=== PATIENT | female | born 1980 | race Two or more races ===

== ENCOUNTER → 2016-11-05 | Outpatient (CLI) | payer MEDICARE, MEDICAID | LOC: RAD 08:30 | PROVIDERS: ATTEND Specialist | DX: C50.412 Malignant neoplasm of upper-outer quadrant of left female breast (principal) | CPT/HCPCS: 78306; A9503; Q9969 ==

== ENCOUNTER → 2016-11-12 | Outpatient (CLI) | payer MEDICARE, MEDICAID | LOC: RAD 10:10 | PROVIDERS: ATTEND Specialist | DX: C50.412 Malignant neoplasm of upper-outer quadrant of left female breast (principal); C17.2 Malignant neoplasm of ileum | CPT/HCPCS: 72197; A9576 ==

== ENCOUNTER → 2016-11-15 | Outpatient (CLI) | payer MEDICARE, MEDICAID | LOC: RAD 08:49 | PROVIDERS: ATTEND Specialist | DX: C50.412 Malignant neoplasm of upper-outer quadrant of left female breast (principal) | CPT/HCPCS: 71260; 74177 ==

== ENCOUNTER → 2016-12-02 | Outpatient (CLI) | payer MEDICARE, MEDICAID ==
[2016-12-02 17:19] LABS: ABSOLUTE EOSINOPHILS # (AUTO) 0.1 10^3/uL (0.0-0.6); ABSOLUTE LYMPHOCYTES (AUTO) 1.3 10^3/uL (0.5-4.7); ABSOLUTE MONOCYTES (AUTO) 0.4 10^3/uL (0.1-1.4); ABSOLUTE NEUT (AUTO) 6.4 10^3/uL (1.7-8.2); BASOPHILS % (AUTO) 0.3 % (0-2); EOSINOPHILS % (AUTO) 1.1 % (0-6); HEMATOCRIT 40.2 % (36.0-47.0); HEMOGLOBIN 13.8 g/dL (12.0-15.5); HGB HCT DIFFERENCE 1.2; LYMPHOCYTES % (AUTO) 15.9 % (13-45); MEAN CORPUSCULAR HEMOGLOBIN 31.8 pg (27.0-33.4); MEAN CORPUSCULAR HGB CONC 34.3 g/dL (32.0-36.0); MEAN CORPUSCULAR VOLUME 93 fl (80-97); MONOCYTES % (AUTO) 4.4 % (3-13); RED BLOOD COUNT 4.34 10^6/uL (3.72-5.28); RED CELL DISTRIBUTION WIDTH 12.6 % (11.5-14.0); SEGMENTED NEUTROPHILS % (AUTO) 78.3 % (42-78); WHITE BLOOD COUNT 8.2 10^3/uL (4.0-10.5)
== END ==
LOC: OD 15:57
PROVIDERS: ATTEND Radiology Radiation Oncology
DX: C50.412 Malignant neoplasm of upper-outer quadrant of left female breast (principal); C79.51 Secondary malignant neoplasm of bone
CPT/HCPCS: 36415; 85025

== ENCOUNTER → 2017-03-10 | Outpatient (CLI) | payer MEDICARE, MEDICAID ==
--- NOTE | 2017-03-10 10:14 | RADIOLOGY REPORT (SQ) ---
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 Images reviewed with lung, soft tissue and bone windows. Reconstructed coronal and sagittal MPR images reviewed. All images stored on PACS. All CT scanners at this facility use dose modulation, iterative reconstruction, and/or weight based d osing when appropriate to reduce radiation dose to as low as reasonably achievable (ALARA). [facility]: Dose Right [facility]: CareDose [facility]: Dose Right [facility]: Teradose 4D [facility]: [employer] CONTRAST TYPE AND DOSE: 100 mL Isovue 370 RENAL FUNCTION: None required. The patient is less than 50 years old. RADIATION DOSE: Up-to-date CT equipment and radiation dose reduction techniques were employed. CTDIv ol: 4.5 - 13.4 mGy. DLP: 1210 mGy-cm. . LIMITATIONS: None. FINDINGS: LUNGS AND PLEURA: There is a stable 3.7 mm nodule in the left lower lobe. Lung robbins are otherwise clear. No effusions or consolidation. HILAR AND MEDIASTINAL STRUCTURES: No identified masses or abnormal nodes. HEART AND VASCULAR STRUCTURES: No aneurysm or dissection. No central pulmonary emboli. No pericardi al effusion. HARDWARE: None in the chest. UPPER ABDOMEN: No significant findings. Limited exam. THYROID AND OTHER SOFT TISSUES: No masses or adenopathy. Breast implants are in place. BONES: No significant finding. OTHER: No other significant finding. IMPRESSION: Single stable 3.7 mm nodule in the left lower lobe. No other significant findings. TECHNICAL DOCUMENTATION: JOB ID: [id number] Quality ID # 436: Final reports with documentation of one or more dose reduction techniques (e.g., Au tomated exposure control, adjustment of the mA and/or kV according to patient size, use of iterative reconstruction technique) 2010 [email or web address]- All Rights Reserved
--- NOTE | 2017-03-10 11:07 | RADIOLOGY REPORT (SQ) ---
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 TECHNIQUE: CT scan of the abdomen and pelvis performed using helical scanning technique with dynamic intravenous contrast injection. No oral contrast. Images reviewed with lung, soft tissue, and bone windows. Reconstructed coronal and sagittal MPR images reviewed. Delayed images for evaluation of the urinary system also acquired. All images stored on PACS. All CT scanners at this facility use dose modulation, iterative reconstruction, and/or weight based d osing when appropriate to reduce radiation dose to as low as reasonably achievable (ALARA). [facility]: Dose Right [facility]: CareDose [facility]: Dose Right [facility]: Teradose 4D [facility]: [email or web address] CONTRAST TYPE AND DOSE: contrast/concentration: Isovue 370.00 mg/ml; Total Contrast Delivered: 84.0 ml; Total Saline Delivered: 69.0 ml RENAL FUNCTION: None required. The patient is less than 50 years old. RADIATION DOSE: . LIMITATIONS: None. FINDINGS: LOWER CHEST: No significant findings. No nodules or infiltrates. LIVER: Normal size. No masses or dilated ducts. SPLEEN: Normal size. No focal lesions. PANCREAS: No masses. No significant calcifications. No adjacent inflammation or peripancreatic fluid collections. Pancreatic duct not dilated. GALLBLADDER: No identified stones by CT criteria. No inflammatory changes to suggest cholecystitis. ADRENAL GLANDS: No significant masses or asymmetry. RIGHT KIDNEY AND URETER: No solid masses. No significant calcifications. No hydronephrosis or hyd roureter. LEFT KIDNEY AND URETER: No solid masses. No significant calcifications. No hydronephrosis or hydr oureter. AORTA AND VESSELS: No aneurysm. No dissection. Renal arteries, SMA, celiac without stenosis. RETROPERITONEUM: No retroperitoneal adenopathy, hemorrhage or masses. BOWEL AND PERITONEAL CAVITY: No masses or inflammatory changes. No free fluid or peritoneal masses. APPENDIX: Normal. PELVIS: No mass or free fluid. Normal bladder. ABDOMINAL WALL: No masses. No hernias. BONES: There are stable bilateral iliac wing lesions. OTHER: No other significant finding. IMPRESSION: Stable bilateral iliac wing lesions. No soft tissue abnormalities in the abdomen or pel vis. TECHNICAL DOCUMENTATION: JOB ID: [id number] Quality ID # 436: Final reports with documentation of one or more dose reduction techniques (e.g., Au tomated exposure control, adjustment of the mA and/or kV according to patient size, use of iterative reconstruction technique) 2010 [employer]- All Rights Reserved
== END ==
LOC: RAD 08:48
PROVIDERS: ATTEND Specialist
DX: C50.412 Malignant neoplasm of upper-outer quadrant of left female breast (principal)
CPT/HCPCS: 71260; 74177

== ENCOUNTER → 2017-03-17 | Outpatient (CLI) | payer MEDICARE, MEDICAID ==
--- NOTE | 2017-03-17 14:42 | RADIOLOGY REPORT (SQ) ---
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 RADIONUCLIDE AND DOSE: 20 millicuries Tc99m MDP. The route of agent administration: Intravenous. ADDITIONAL DRUGS AND DOSES: None. TECHNIQUE: Routine delayed images at 3 hours post radionuclide injection acquired of the bony skelet on including anterior and posterior whole-body projections and additional focused images as needed. LIMITATIONS: None. FINDINGS: BONES: Normal visualization without areas of photopenia or increased bony uptake of radiop harmaceutical. KIDNEYS: Symmetric excretion without obstruction. OTHER: No other significant finding. IMPRESSION: NORMAL BONE SCAN. COMMENT: PQRS [id number]: Current bone scan is compared with any available plain radiographs, prior bone scans, and CT/MRI. TECHNICAL DOCUMENTATION: JOB ID: [id number] [employer]- All Rights Reserved
== END ==
LOC: RAD 08:57
PROVIDERS: ATTEND Specialist
DX: C50.412 Malignant neoplasm of upper-outer quadrant of left female breast (principal)
CPT/HCPCS: 78306; A9561; Q9969

== ENCOUNTER → 2017-06-09 | Outpatient (CLI) | payer MEDICARE, MEDICAID ==
--- NOTE | 2017-06-09 15:09 | RADIOLOGY REPORT (SQ) ---
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 Images reviewed with lung, soft tissue and bone windows. Reconstructed coronal and sagittal MPR images reviewed. All images stored on PACS. All CT scanners at this facility use dose modulation, iterative reconstruction, and/or weight based d osing when appropriate to reduce radiation dose to as low as reasonably achievable (ALARA). [facility]: Dose Right [facility]: CareDose [facility]: Dose Right [facility]: Teradose 4D [facility]: [employer] RENAL FUNCTION: GFR > 60. RADIATION DOSE: . LIMITATIONS: None. FINDINGS: LUNGS AND PLEURA: 3 mm pleural-based nodule left lower lobe is unchanged. No new nodules. No effusions. HILAR AND MEDIASTINAL STRUCTURES: No identified masses or abnormal nodes. HEART AND VASCULAR STRUCTURES: No aneurysm or dissection. No central pulmonary emboli. No pericardi al effusion. HARDWARE: None in the chest. UPPER ABDOMEN: See separate report of the CT of the abdomen. THYROID AND OTHER SOFT TISSUES: Breast implants. BONES: No significant finding. OTHER: No other significant finding. IMPRESSION: Stable left lower lobe pulmonary nodule. TECHNICAL DOCUMENTATION: JOB ID: [id number] Quality ID # 436: Final reports with documentation of one or more dose reduction techniques (e.g., Au tomated exposure control, adjustment of the mA and/or kV according to patient size, use of iterative reconstruction technique) 2010 [employer]- All Rights Reserved
--- NOTE | 2017-06-09 15:16 | RADIOLOGY REPORT (SQ) ---
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 No oral contrast. Images reviewed with lung, soft tissue, and bone windows. Reconstructed coronal and sagittal MPR images reviewed. Delayed images for evaluation of the urinary system also acquired. All images stored on PACS. All CT scanners at this facility use dose modulation, iterative reconstruction, and/or weight based d osing when appropriate to reduce radiation dose to as low as reasonably achievable (ALARA). [facility]: Dose Right [facility]: CareDose [facility]: Dose Right [facility]: Teradose 4D [facility]: [employer] CONTRAST TYPE AND DOSE: contrast/concentration: Isovue 370.00 mg/ml; Total Contrast Delivered: 83.0 ml; Total Saline Delivered: 68.0 ml RENAL FUNCTION: See separate report of the same date. RADIATION DOSE: Up-to-date CT equipment and radiation dose reduction techniques were employed. CTDIv ol: 4.5 - 5.2 mGy. DLP: 700 mGy-cm.. LIMITATIONS: None. FINDINGS: LOWER CHEST: See separate report of the CT of the chest. LIVER: Normal size. No masses. No dilated ducts. SPLEEN: Normal size. No focal lesions. PANCREAS: No masses. No significant calcifications. No adjacent inflammation or peripancreatic fluid collections. Pancreatic duct not dilated. GALLBLADDER: No identified stones by CT criteria. No inflammatory changes to suggest cholecystitis. ADRENAL GLANDS: No significant masses or asymmetry. RIGHT KIDNEY AND URETER: No solid masses. No significant calcifications. No hydronephrosis or hyd roureter. LEFT KIDNEY AND URETER: No solid masses. No significant calcifications. No hydronephrosis or hydr oureter. AORTA AND VESSELS: No aneurysm. No dissection. Renal arteries, SMA, celiac without stenosis. RETROPERITONEUM: No retroperitoneal adenopathy, hemorrhage or masses. BOWEL AND PERITONEAL CAVITY: No masses or inflammatory changes. No free fluid or peritoneal masses. APPENDIX: Normal. PELVIS: No mass. No free fluid. Normal bladder. ABDOMINAL WALL: No masses. No hernias. BONES: Mixed sclerotic lytic lesions in the iliac bones bilaterally are stable. OTHER: No other significant finding. IMPRESSION: Stable appearance. Stable iliac bone lesions. TECHNICAL DOCUMENTATION: JOB ID: [id number] Quality ID # 436: Final reports with documentation of one or more dose reduction techniques (e.g., Au tomated exposure control, adjustment of the mA and/or kV according to patient size, use of iterative reconstruction technique) 2010 [employer]- All Rights Reserved
== END ==
LOC: RAD 09:39
PROVIDERS: ATTEND Internal Medicine
DX: C50.412 Malignant neoplasm of upper-outer quadrant of left female breast (principal)
CPT/HCPCS: 71260; 74177

== ENCOUNTER 2018-03-09 00:12 | Emergency (ER) | payer OTHER, MEDICARE, MEDICAID ==
[2018-03-09 00:55] VITALS: BP 135/83
[2018-03-09] MEDS ORDERED: CYCLOBENZAPRINE HCL 10 MG TABLET PO ONE (01:39)
[2018-03-09] MEDS ORDERED: OXYCODONE-ACETAMINOPHEN 5-325 MG TABLET PO ONE (01:39)
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
== END 2018-03-09 01:51 | disposition home or self-care (01) ==
LOC: ER 00:12
DX: S00.81XA Abrasion of other part of head, initial encounter (principal); R51 Headache; M54.2 Cervicalgia; V43.62XA Car passenger injured in collision with other type car in traffic accident, initial encounter; Z88.8 Allergy status to other drugs, medicaments and biological substances; Z91.040 Latex allergy status
CPT/HCPCS: 99283

== ENCOUNTER → 2018-03-30 | Outpatient (CLI) | payer MEDICARE, MEDICAID ==
--- NOTE | 2018-03-30 17:11 | RADIOLOGY REPORT (SQ) ---
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 The route of agent administration: Intravenous. ADDITIONAL DRUGS AND DOSES: None. TECHNIQUE: Routine delayed images at 3 hours post radionuclide injection acquired of the bony skelet on including anterior and posterior whole-body projections and additional focused images as needed. LIMITATIONS: None. FINDINGS: BONES: Normal visualization without areas of photopenia or increased bony uptake of radiop harmaceutical. KIDNEYS: Symmetric excretion without obstruction. OTHER: No other significant finding. IMPRESSION: NORMAL BONE SCAN. COMMENT: Quality measure 147: Current bone scan is compared with any available plain radiographs, p rior bone scans, and CT/MRI. TECHNICAL DOCUMENTATION: JOB ID: [id number] [employer]- All Rights Reserved Reading location - IP/workstation name: [email or web address]
== END ==
LOC: RAD 10:52
PROVIDERS: ATTEND Internal Medicine Hematology & Oncology
DX: C50.412 Malignant neoplasm of upper-outer quadrant of left female breast (principal)
CPT/HCPCS: 78306; A9561; Q9969

== ENCOUNTER → 2018-09-24 | Outpatient (CLI) | payer MEDICARE, MEDICAID ==
--- NOTE | 2018-09-24 08:46 | RADIOLOGY REPORT (SQ) ---
EXAM DESCRIPTION: KNEE LEFT 4 VIEWS; KNEE RIGHT 4 VIEWS COMPLETED DATE/TIME: 09/24/2018 8:26 am REASON FOR STUDY: PAIN IN UNSPECIFIED KNEE M25.579 PAIN IN UNSPECIFIED ANKLE AND JOINTS OF UNSPECIF IED M25.569 PAIN IN UNSPECIFIED KNEE BILATERAL KNEE PAIN SINCE CHEMOTHERAPY COMPARISON: None. NUMBER OF VIEWS: Four views. TECHNIQUE: AP, lateral, and both oblique radiographic images acquired of the right and left knee. LIMITATIONS: None. FINDINGS: MINERALIZATION: Normal. BONES: No acute fracture or dislocation. No worrisome bone lesions. JOINT: No effusion. SOFT TISSUES: No soft tissue swelling. No radio-opaque foreign body. OTHER: No other significant finding. IMPRESSION: NEGATIVE STUDY OF THE RIGHT AND LEFT KNEE. NO RADIOGRAPHIC EVIDENCE OF ACUTE INJURY. NO HIGH-GRADE JOINT SPACE NARROWING OR BULKY BONY SPURRING. TECHNICAL DOCUMENTATION: JOB ID: [id number] [employer]- All Rights Reserved Reading location - IP/workstation name: [facility]
--- NOTE | 2018-09-24 08:46 | RADIOLOGY REPORT (SQ) ---
EXAM DESCRIPTION: KNEE LEFT 4 VIEWS; KNEE RIGHT 4 VIEWS COMPLETED DATE/TIME: 09/24/2018 8:26 am REASON FOR STUDY: PAIN IN UNSPECIFIED KNEE M25.579 PAIN IN UNSPECIFIED ANKLE AND JOINTS OF UNSPECIF IED M25.569 PAIN IN UNSPECIFIED KNEE BILATERAL KNEE PAIN SINCE CHEMOTHERAPY COMPARISON: None. NUMBER OF VIEWS: Four views. TECHNIQUE: AP, lateral, and both oblique radiographic images acquired of the right and left knee. LIMITATIONS: None. FINDINGS: MINERALIZATION: Normal. BONES: No acute fracture or dislocation. No worrisome bone lesions. JOINT: No effusion. SOFT TISSUES: No soft tissue swelling. No radio-opaque foreign body. OTHER: No other significant finding. IMPRESSION: NEGATIVE STUDY OF THE RIGHT AND LEFT KNEE. NO RADIOGRAPHIC EVIDENCE OF ACUTE INJURY. NO HIGH-GRADE JOINT SPACE NARROWING OR BULKY BONY SPURRING. TECHNICAL DOCUMENTATION: JOB ID: [id number] [employer]- All Rights Reserved Reading location - IP/workstation name: [facility]
--- NOTE | 2018-09-24 08:46 | RADIOLOGY REPORT (SQ) ---
EXAM DESCRIPTION: ANKLE BILATERAL 3 VIEWS MIN COMPLETED DATE/TIME: 09/24/2018 8:26 am REASON FOR STUDY: PAIN IN UNSPECIFIED ANKLE AND JOINTS OF UNSPECIFIED FOOT M25.579 PAIN IN UNSPECIF IED ANKLE AND JOINTS OF UNSPECIFIED M25.569 PAIN IN UNSPECIFIED KNEE COMPARISON: None. NUMBER OF VIEWS: Three views. TECHNIQUE: AP, lateral, and oblique without weight bearing radiographic images acquired of the right and left ankle. LIMITATIONS: None. FINDINGS: MINERALIZATION: Normal. BONES: No acute fracture or dislocation. No worrisome bone lesions. No significant osteophytes. JOINTS: No effusions. SOFT TISSUES: No soft tissue swelling. No foreign body. OTHER: No other significant finding. IMPRESSION: NEGATIVE STUDY OF THE RIGHT AND LEFT ANKLES. NO EXPLANATION FOR PAIN. TECHNICAL DOCUMENTATION: JOB ID: [id number] [employer]- All Rights Reserved Reading location - IP/workstation name: [email or web address]
== END ==
LOC: OD 07:57
PROVIDERS: ATTEND Physician Assistant
DX: M25.562 Pain in left knee (principal); M25.561 Pain in right knee; M25.579 Pain in unspecified ankle and joints of unspecified foot

== ENCOUNTER → 2019-10-06 | Outpatient (CLI) | payer MEDICARE, MEDICAID ==
--- NOTE | 2019-10-06 12:43 | RADIOLOGY REPORT (SQ) ---
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 The patient is less than 50 years old. TECHNIQUE: CT scan of the chest performed using helical scanning technique with dynamic intravenous contrast injection. Images reviewed with lung, soft tissue and bone windows. Reconstructed coronal a nd sagittal MPR images reviewed. All images stored on PACS. CT scan of the abdomen and pelvis performed with intravenous and without oral contrastusing helical s leticia technique with dynamic intravenous contrast injection. Images reviewed with lung, soft tissu e and bone windows. Reconstructed coronal and sagittal MPR images reviewed. Delayed images for eval uation of the urinary system also acquired and evaluated. All images stored on PACS. All CT scanners at this facility use dose modulation, iterative reconstruction, and/or weight based d osing when appropriate to reduce radiation dose to as low as reasonably achievable (ALARA). [facility]: Dose Right [facility]: CareDose [facility]: Dose Right [facility]: Teradose 4D [facility]: [employer] RADIATION DOSE: CT Rad equipment meets quality standard of care and radiation dose reduction techniq ues were employed. CTDIvol: 4.6 - 4.7 mGy. DLP: 654 mGy-cm. . LIMITATIONS: None. FINDINGS: CHEST: LUNGS AND PLEURA: No opacities, nodules, masses. No pneumothorax. No effusions. HILAR AND MEDIASTINAL STRUCTURES: No identified masses or abnormal nodes. HEART AND VASCULAR STRUCTURES: No aneurysm or dissection. No central pulmonary emboli. No pericardi al effusion. HARDWARE: None. THYROID AND OTHER SOFT TISSUES: No masses. No adenopathy. BONES: No significant finding. OTHER: Patient is post bilateral skin sparing mastectomies. ABDOMEN AND PELVIS: LIVER: Normal size. No masses. No dilated ducts. SPLEEN: Normal size. No focal lesions. PANCREAS: No masses. No significant calcifications. No adjacent inflammation or peripancreatic fluid collections. Pancreatic duct not dilated. GALLBLADDER: No identified stones by CT criteria. No inflammatory changes to suggest cholecystitis. ADRENAL GLANDS: No significant masses or asymmetry. RIGHT KIDNEY AND URETER: No solid masses. No significant calcification. No hydronephrosis or hydroure ter. LEFT KIDNEY AND URETER: No solid masses. No significant calcification. No hydronephrosis or hydrouret er. AORTA AND VESSELS: No aneurysm. No dissection. Renal arteries, SMA, celiac without stenosis. RETROPERITONEUM: No retroperitoneal adenopathy, hemorrhage or masses. BOWEL AND PERITONEAL CAVITY: No masses or inflammatory changes. No free fluid or peritoneal masses. APPENDIX: Normal. ABDOMINAL WALL: No masses. No hernias. PELVIS: No mass or free fluid. Normal bladder. BONES: Persistent sclerotic lesions in the posterior right and left innominate bones adjacent to the SI joints, unchanged. Persistent sclerotic lesion in the anterior left pelvis/superior pubic ramus OTHER: No other significant finding. IMPRESSION: Stable sclerotic bony lesions in the pelvis Post bilateral skin sparing mastectomies with breast implants. NORMAL CT OF THE ABDOMEN AND PELVIS WITH ORAL AND INTRAVENOUS CONTRAST. TECHNICAL DOCUMENTATION: JOB ID: [id number] Quality ID # 436: Final reports with documentation of one or more dose reduction techniques (e.g., Au tomated exposure control, adjustment of the mA and/or kV according to patient size, use of iterative reconstruction technique) 2010 [employer]- All Rights Reserved Reading location - IP/workstation name: [email or web address]
--- NOTE | 2019-10-06 14:47 | RADIOLOGY REPORT (SQ) ---
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 Bone scan 03/30/2018 RADIONUCLIDE AND DOSE: 20 millicuries Tc99m HDP. The route of agent administration: Intravenous. ADDITIONAL DRUGS AND DOSES: None. TECHNIQUE: Routine delayed images at 3 hours post radionuclide injection acquired of the bony skelet on including anterior and posterior whole-body projections and additional focused images as needed. LIMITATIONS: None. FINDINGS: BONES: There is intense focal uptake at the superior aspect of the right sacroiliac joint. Intense uptake in the right humeral head KIDNEYS: Symmetric excretion without obstruction. OTHER: No other significant finding. IMPRESSION: There are findings concerning for metastatic disease. COMMENT: Quality measure 147: Current bone scan is compared with any available plain radiographs, p rior bone scans, and CT/MRI. TECHNICAL DOCUMENTATION: JOB ID: [id number] [employer]- All Rights Reserved Reading location - IP/workstation name: [email or web address]
== END ==
LOC: RAD 08:05
PROVIDERS: ATTEND Nurse Practitioner Family
DX: C50.412 Malignant neoplasm of upper-outer quadrant of left female breast (principal)
CPT/HCPCS: 78306; 71260; 74177; A9561; Q9969

== ENCOUNTER → 2020-04-05 | Outpatient (CLI) | payer MEDICARE, MEDICAID ==
--- NOTE | 2020-04-05 10:58 | RADIOLOGY REPORT (SQ) ---
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 Images reviewed with lung, soft tissue and bone windows. Reconstructed coronal and sagittal MPR and MIP images reviewed. All images stored on PACS. All CT scanners at this facility use dose modulation, iterative reconstruction, and/or weight based d osing when appropriate to reduce radiation dose to as low as reasonably achievable (ALARA). [facility]: Dose Right [facility]: CareDose [facility]: Dose Right [facility]: Teradose 4D [facility]: BioTime CONTRAST TYPE AND DOSE: contrast/concentration: Isovue 350.00 mmol/ml; Total Contrast Delivered: 87. 0 ml; Total Saline Delivered: 69.0 ml RENAL FUNCTION: See abdomen RADIATION DOSE: CT Rad equipment meets quality standard of care and radiation dose reduction techniq ues were employed. CTDIvol: 4.9 - 6.0 mGy. DLP: 684 mGy-cm. . LIMITATIONS: None. FINDINGS: LUNGS AND PLEURA: No opacities, nodules, masses. No pneumothorax. No effusions. HILAR AND MEDIASTINAL STRUCTURES: No identified masses or abnormal nodes. HEART AND VASCULAR STRUCTURES: No aneurysm or dissection. No central pulmonary emboli. No pericardi al effusion. HARDWARE: Bilateral breast prostheses. UPPER ABDOMEN: See separate report of the CT of the abdomen. THYROID AND OTHER SOFT TISSUES: Unremarkable thyroid. Postsurgical changes from bilateral mastectomi es with bilateral breast prostheses. BONES: No acute bony abnormality. Sclerotic focus within the right humeral head measuring 20 mm, inc reased in conspicuity from prior exam. OTHER: No other significant finding. IMPRESSION: 1. Increased conspicuity of the proximal right humeral sclerotic lesion compatible with osseous metastatic disease. 2. No other evidence of new metastatic disease within the thorax. 3. See same day abdomen CT for findings below the diaphragm. TECHNICAL DOCUMENTATION: JOB ID: [id number] Quality ID # [id number]: Final reports with documentation of one or more dose reduction techniques (e.g., Au tomated exposure control, adjustment of the mA and/or kV according to patient size, use of iterative reconstruction technique) 2010 [employer]- All Rights Reserved Reading location - IP/workstation name: [email or web address]
--- NOTE | 2020-04-05 12:06 | RADIOLOGY REPORT (SQ) ---
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 No oral contrast. Images reviewed with lung, soft tissue, and bone windows. Reconstructed coronal and sagittal MPR images reviewed. Delayed images for evaluation of the urinary system also acquired. All images stored on PACS. All CT scanners at this facility use dose modulation, iterative reconstruction, and/or weight based d osing when appropriate to reduce radiation dose to as low as reasonably achievable (ALARA). [facility]: Dose Right [facility]: CareDose [facility]: Dose Right [facility]: Teradose 4D [facility]: Smart QD Vision CONTRAST TYPE AND DOSE: See chest RENAL FUNCTION: See chest RADIATION DOSE: . LIMITATIONS: None. FINDINGS: LOWER CHEST: See separate report of the CT of the chest. LIVER: There is a 15 mm hypodense lesion along the posterior right hepatic lobe (series 3, image 56), not previously visualized. Additional adjacent focus of transit hyperattenuation along the posterio r right hepatic lobe appears grossly stable and non visualized on delayed imaging (series 3, image 58 ). This is better evaluated on exam dated 06/09/2017 and likely represents a hemangioma. SPLEEN: Normal size. No focal lesions. PANCREAS: No masses. No significant calcifications. No adjacent inflammation or peripancreatic fluid collections. Pancreatic duct not dilated. GALLBLADDER: No identified stones by CT criteria. No inflammatory changes to suggest cholecystitis. ADRENAL GLANDS: No significant masses or asymmetry. RIGHT KIDNEY AND URETER: No solid masses. No significant calcifications. No hydronephrosis or hyd roureter. LEFT KIDNEY AND URETER: No solid masses. No significant calcifications. No hydronephrosis or hydr oureter. AORTA AND VESSELS: No aneurysm. No dissection. Renal arteries, SMA, celiac without stenosis. RETROPERITONEUM: No retroperitoneal adenopathy, hemorrhage or masses. BOWEL AND PERITONEAL CAVITY: No masses or inflammatory changes. No free fluid or peritoneal masses. APPENDIX: Normal. PELVIS: No mass. No free fluid. Normal bladder. ABDOMINAL WALL: No masses. No hernias. BONES: No acute bony abnormality. Stable or bilateral iliac sclerotic lesions. No new discrete lyt ic or blastic osseous lesions. OTHER: No other significant finding. IMPRESSION: 1. New 15 mm hypodense lesion along the posterior right hepatic lobe, moderately suspic ious for hepatic metastatic disease. Stable additional adjacent transient enhancing lesion, likely h emangioma. Multiphase contrast-enhanced MRI could be considered for more definitive characterization . 2. Stable sclerotic osseous lesions within the pelvis. No new bony disease. 3. See same-day chest CT for findings above the diaphragm. TECHNICAL DOCUMENTATION: JOB ID: [id number] Quality ID # [id number]: Final reports with documentation of one or more dose reduction techniques (e.g., Au tomated exposure control, adjustment of the mA and/or kV according to patient size, use of iterative reconstruction technique) 2010 [employer]- All Rights Reserved Reading location - IP/workstation name: [email or web address]
== END ==
LOC: RAD 08:42
PROVIDERS: ATTEND Nurse Practitioner Family
DX: C50.412 Malignant neoplasm of upper-outer quadrant of left female breast (principal)
CPT/HCPCS: 71260; 74177

== ENCOUNTER 2020-04-10 02:34 | Emergency (ER) | payer MEDICARE, MEDICAID ==
[2020-04-10 05:06] LABS: ABSOLUTE LYMPHOCYTES (AUTO) 0.7 10^3/uL (0.5-4.7); ABSOLUTE MONOCYTES (AUTO) 0.5 10^3/uL (0.1-1.4); ABSOLUTE NEUT (AUTO) 4.4 10^3/uL (1.7-8.2); BASOPHILS % (AUTO) 0.5 % (0-2); EOSINOPHILS % (AUTO) 0.2 % (0-6); HEMATOCRIT 35.5 % (36.0-47.0); HEMOGLOBIN 12.4 g/dL (12.0-15.5); LYMPHOCYTES % (AUTO) 11.8 % (13-45); MEAN CORPUSCULAR HEMOGLOBIN 35.9 pg (27.0-33.4); MEAN CORPUSCULAR VOLUME 103 fl (80-97); MONOCYTES % (AUTO) 8.6 % (3-13); PLATELET COUNT 287 10^3/uL (150-450); RED BLOOD COUNT 3.46 10^6/uL (3.72-5.28); RED CELL DISTRIBUTION WIDTH 13.8 % (11.5-14.0); SEGMENTED NEUTROPHILS % (AUTO) 78.9 % (42-78); TOTAL CELLS COUNTED % (AUTO) 100 %; WHITE BLOOD COUNT 5.5 10^3/uL (4.0-10.5)
[2020-04-10 05:27] LABS: ALBUMIN 4.2 g/dL (3.5-5.0); ALKALINE PHOSPHATASE 52 U/L (38-126); ANION GAP 7 (5-19); ASPARTATE AMINO TRANSFERASE 18 U/L (14-36); BILIRUBIN,TOTAL 0.7 mg/dL (0.2-1.3); BLOOD UREA NITROGEN 5 mg/dL (7-20); CALCIUM 8.7 mg/dL (8.4-10.2); CARBON DIOXIDE 26 mmol/L (22-30); CHLORIDE 102 mmol/L (98-107); GLUCOSE 97 mg/dL (75-110); POTASSIUM 3.8 mmol/L (3.6-5.0); TOTAL PROTEIN 7.4 g/dL (6.3-8.2)
[2020-04-10] MEDS ORDERED: CEFTRIAXONE INJ 1000 MG VIAL IM ONE (07:34)
--- NOTE | 2020-04-10 07:40 | ER Document Report ---
ED General - General Chief Complaint: Facial Swelling Stated Complaint: FACIAL SWELLING Time Seen by Provider: 04/10/20 06:17 Primary Care Provider: LILLIAN WATT FNP-C [Primary Care Provider] - Follow up as needed Notes: 39 yof who presents to the ER with a CC of right sided facial swelling. Patient reports right lower dental cavities present. Patient states she began to have right jaw swelling yesterday am which has worsened to this early am. Patient does present with moderate right sided jaw swelling upon visual assessment. Patient denies difficulty swallowing or breathing. Patient able to speak full sentences. Patient reports history of right lower wisdom tooth removal this past november, as well as, as bone spur. Patient reports she was informed that she had bone and nerve damage following wisdom tooth removal. Pt's dentist is Nicolas Segovia in [place]. Patient states she was placed on Amoxicillin by her dentist due to an infection on inside of right lower gums. Patient reports taking her last does of Amoxicillin x1 1/2 weeks ago. Patient noted to have temperature of 100.2 upon arrival. TRAVEL OUTSIDE OF THE [place] IN LAST 30 DAYS: No - Related Data Allergies/Adverse Reactions: haloperidol [From Haldol] Allergy (Severe, Verified 06/08/15 08:53) Swelling latex [Latex] Allergy (Mild, Verified 06/08/15 08:53) Generalized rash Past Medical History - Social History Smoking Status: Current Every Day Smoker Chew tobacco use (# tins/day): No Frequency of alcohol use: None Drug Abuse: None Family History: Reviewed & Not Pertinent Patient has homicidal ideation: No - Past Medical History Cardiac Medical History: Denies: Hx Coronary Artery Disease, Hx Heart Attack, Hx Hypertension Pulmonary Medical History: Denies: Hx Asthma, Hx Bronchitis, Hx COPD, Hx Pneumonia Neurological Medical History: Denies: Hx Cerebrovascular Accident, Hx Seizures Renal/ Medical History: Denies: Hx Peritoneal Dialysis Musculoskeletal Medical History: Denies Hx Arthritis Psychiatric Medical History: Reports: Hx Bipolar Disorder Past Surgical History: Reports: Hx Oral Surgery - root canal - Immunizations Hx Diphtheria, Pertussis, Tetanus Vaccination: No Review of Systems - Review of Systems Constitutional: Fever. denies: Chills EENT: Mouth pain, Mouth swelling, Dental problem Cardiovascular: denies: Chest pain Respiratory: denies: Short of breath Gastrointestinal: No symptoms reported Genitourinary: No symptoms reported Female Genitourinary: No symptoms reported Musculoskeletal: No symptoms reported Skin: No symptoms reported Hematologic/Lymphatic: No symptoms reported Neurological/Psychological: No symptoms reported Physical Exam - Vital signs Vitals: Temp Pulse Resp BP Pulse Ox 100.2 F 104 H 18 117/74 97 04/10/20 02:48 04/10/20 02:48 04/10/20 02:48 04/10/20 02:48 04/10/20 02:48 - Notes Notes: GENERAL_APPEARANCE: well_nourished, alert, cooperative VITALS: reviewed, see vital signs table. HEAD: no_swelling\tenderness on the head. EYES: PERRL, EOMI, conjunctiva_clear. NOSE: no_nasal_discharge. MOUTH: Overall poor dentition. The right lower jaw has some swelling. Teeth are tender. She is likely dental abscess. THROAT: no_tonsilar_inflammation, no_airway_obstruction. no_lymphadenopathy NECK: supple, no_neck_tenderness, (-)thyromegaly. BACK: no_back_tenderness. CHEST_WALL: no_chest_tenderness. LUNGS: no_wheezing, no_rales, no_rhonchi, (-)accessory muscle use, good air exchange bilateral. EXTREMITIES: strength 5/5 in all_extremities, good pulses in all_extremities, no_swelling\tenderness in the extremities, no_edema. SKIN: warm, dry, good_color, no_rash. MENTAL_STATUS: speech_clear, oriented_X_3, normal_affect, resp onds_appropriately to questions. Course - Re-evaluation Re-evalutation: 04/10/20 07:36 39-year-old female presents to the ER with dental abscess right lower jaw will give her a dose of Rocephin here she was on amoxicillin recently we will switch her over to clindamycin. Will do anti-inflammatories. She has seen her dentist since then. His recommendations are to continue with antibiotics and get the infection under control till she is able to extract the teeth. The patient does not appear septic here. She has no drooling or stridor. I am able to see her uvula. Will switch to clindamycin. Give a dose of Rocephin here. If not improving 2440 hrs. return to ER - Vital Signs Vital signs: Temp Pulse Resp BP Pulse Ox 100.2 F 104 H 18 117/74 97 04/10/20 02:58 04/10/20 02:48 04/10/20 02:48 04/10/20 02:48 04/10/20 02:48 - Laboratory Result Diagrams: 04/10/20 04:55 04/10/20 04:55 Laboratory results interpreted by me: 04/10/20 04/10/20 04:55 04:55 RBC 3.46 L Hct 35.5 L MCV 103 H MCH 35.9 H Lymph % (Auto) 11.8 L Seg Neutrophils % 78.9 H Sodium 134.6 L BUN 5 L Discharge - Discharge Clinical Impression: Dental abscess Condition: Good Disposition: HOME, SELF-CARE Instructions: Dental Infection or Abscess ([facility]) Prescriptions: Clindamycin HCl [Cleocin 150 mg Capsule] 300 mg PO Q6 #60 capsule Referrals: LILLIAN WATT FNP-C [Primary Care Provider] - Follow up as needed
[2020-04-10 08:32] VITALS: BP 113/62
== END 2020-04-10 08:32 | disposition home or self-care (01) ==
LOC: ER 02:34
DX: K04.7 Periapical abscess without sinus (principal); F17.200 Nicotine dependence, unspecified, uncomplicated; Z91.040 Latex allergy status
CPT/HCPCS: 99283; 96372; 36415; 85025; 80053; J0696

== ENCOUNTER → 2020-07-11 | Outpatient (CLI) | payer MEDICARE, MEDICAID ==
--- NOTE | 2020-07-11 18:04 | RADIOLOGY REPORT (SQ) ---
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 TECHNIQUE: Blood glucose level was verified. Above dose of FDG was injected intravenously. 2-D seg mented attenuation correction images were obtained from the base of the skull to the midthighs. Nonc ontrast CT images were obtained for attenuation correction and fusion with emission images. CT image s were performed without oral or intravenous contrast and are not sensitive for parenchymal lesions. A series of overlapping emission PET images were obtained. Images reviewed and manipulated at [facility] work station by the radiologist. Images stored on PACS. LIMITATIONS: None. FINDINGS: HEAD AND NECK: There is abnormal uptake surrounding the right aspect of the mandible. Thi s may be related to dental disease. There is lucency surrounding a right molar. Clinical correlatio n is needed metastatic disease is thought to be less likely. SUV is 7.39. CHEST: There is abnormal uptake in a small nodule anterior and medial to the left breast prosthesis. SUV is 2.7. This apparent nodule measures 1.[address] images. It has possible this represents upt corina in the pectoralis muscle. Correlation with ultrasound or mammography is recommended. ABDOMEN AND PELVIS: Abnormal uptake in the posterior right lobe of liver. SUV is 6.1 consistent with neoplasm. There is fairly extensive retroperitoneal and periaortic adenopathy. This is new from [place] SUV is as high as 11.5. PROXIMAL LOWER EXTREMITIES: No areas of abnormal metabolic activity in the soft tissues of the lower extremities. BONES: Abnormal uptake in the right ilium consistent with known metastasis. ADDITIONAL CT FINDINGS: No additional significant findings on the noncontrast CT images. OTHER: Small areas of uptake in the subcutaneous tissue overlying the right and left posterior flanks is most likely physiologic possibly related to injections. IMPRESSION: 1. Abnormal uptake in the posterior right lobe of liver consistent with metastatic disea se. 2. Increased metabolic activity numerous in large right retroperitoneal and periaortic lymph nodes c onsistent with metastatic disease. 3. Abnormal uptake in the right aspect of the pelvis consistent with bony metastatic disease. 4. Uptake in the right mandible surrounding a molar may be dental in origin. Metastatic disease is thought to be less likely. 5. Uptake anterior and medial to the left breast as discussed. SUV is 2.7. Recommend correlation w ith ultrasound or mammography for further evaluation. TECHNICAL DOCUMENTATION: JOB ID: [id number] 2010 [employer]- All Rights Reserved Reading location - IP/workstation name: [email or web address]
== END ==
LOC: RAD 09:57
PROVIDERS: ATTEND Internal Medicine Hematology & Oncology
DX: C50.412 Malignant neoplasm of upper-outer quadrant of left female breast (principal)
CPT/HCPCS: 78815; A9552

== ENCOUNTER → 2020-07-28 | Outpatient (CLI) | payer MEDICARE, MEDICAID ==
--- NOTE | 2020-07-28 15:37 | RADIOLOGY REPORT (SQ) ---
EXAM DESCRIPTION: NM MUGA REST IMAGES COMPLETED DATE/TIME: 07/28/2020 3:12 pm REASON FOR STUDY: (C50.412)MALIG NEOPLASM OF UPPER-OUTER QUADRANT OF LEFT FEMALE BREAST C50.412 MAL IG NEOPLASM OF UPPER-OUTER QUADRANT OF LEFT FEMAL Z01.89 ENCOUNTER FOR OTHER SPECIFIED SPECIAL EXAMI NATIONS COMPARISON: None. RADIONUCLIDE AND DOSE: 26.0 mCi technetium 99m labeled red blood cells The route of agent administration: Intravenous TECHNIQUE: Following administration of the radionuclide, gated images of the heart are obtained in t hree projections. Left ventricular functional analysis performed. LIMITATIONS: None. FINDINGS: LEFT VENTRICULAR FUNCTION: EJECTION FRACTION: 62%. END-DIASTOLIC VOLUME: 141 mL. END-SYSTOLIC VOLUME: 36 mL. WALL MOTION: No focal wall motion abnormalities. OTHER: No other significant finding. IMPRESSION: NORMAL CARDIAC MUGA STUDY. NORMAL LEFT VENTRICULAR FUNCTION WITH VALUES ABOVE. TECHNICAL DOCUMENTATION: JOB ID: [id number] 2010 [employer]- All Rights Reserved Reading location - IP/workstation name: [email or web address]
== END ==
LOC: RAD 13:46
PROVIDERS: ATTEND Internal Medicine Hematology & Oncology
DX: C50.412 Malignant neoplasm of upper-outer quadrant of left female breast (principal); Z01.89 Encounter for other specified special examinations; Z08 Encounter for follow-up examination after completed treatment for malignant neoplasm
CPT/HCPCS: 78472; A9560; Q9969

== ENCOUNTER 2020-08-01 07:03 | Day surgery (SDC) | payer MEDICARE, MEDICAID ==
[~2020-08-01 07:03] MED LIST: CEFAZOLIN 2 GM/D5W RTU 2 GM/50 ML RTUPB IV ONE; CEFAZOLIN 2 GM/D5W RTU 2 GM/50 ML RTUPB IV PRN; FENTANYL CITRATE INJ/PF 100 MCG/2 ML AMPUL ONE; IBUPROFEN 800 MG in NORMAL SALINE 250 ML IV PRN; MIDAZOLAM 2 MG/2 ML INJ ONE; PROPOFOL INJ 200 MG/20 ML VIAL IV ONE
[2020-08-01] MEDS ORDERED: BUPIVACAINE HCL 0.25 % INJ/PF (2.5 MG/1 ML) 30 ML VIAL ONE (08:45)
[2020-08-01] MEDS ORDERED: LIDOCAINE 1% INJ-PF (10 MG/ML) 30 ML SDV ONE (08:46)
[2020-08-01] MEDS ORDERED: MORPHINE SULFATE 10 MG/ML INJ IV PRN (09:18)
[2020-08-01] MEDS ORDERED: PROMETHAZINE HCL INJ 25 MG/1 ML VIAL IV PRN ×2 (09:18)
[2020-08-01] MEDS ORDERED: MEPERIDINE HCL/PF INJ 25 MG/1 ML DISP.SYRIN IV PRN (09:18)
[2020-08-01] MEDS ORDERED: DIPHENHYDRAMINE HCL 50 MG/ML VIAL IV PRN (09:18)
[2020-08-01] MEDS ORDERED: FENTANYL CITRATE INJ/PF 100 MCG/2 ML AMPUL IV PRN ×3 (09:18)
[2020-08-01] MEDS ORDERED: ONDANSETRON HCL INJ/PF 4 MG/2 ML SDV IV PRN (09:18)
--- NOTE | 2020-08-01 09:54 | Discharge Summary ---
Discharge Summary (SDC) - Discharge Final Diagnosis: Breast cancer Date of Surgery: 08/01/20 Discharge Date: 08/01/20 Condition: Stable Forms: ASU Anesthesia D/C Instruction, Discharge POC-Surgical Service Treatment or Instructions: Discharge home. Diet as tolerated. Activity: Nonstrenuous. Follow-up with me as needed. Okay to use Mediport. Resume home medications as previously prescr ibed. Okay to shower starting on . No tub baths or swimming pools x2 weeks. Referrals: JAVIER PEREZ MD [ACTIVE STAFF] - Discharge Diet: As Tolerated Respiratory Treatments at Home: Deep Breathing/Coughing, Incentive Spirometer Discharge Activity: Balance Activity w/Rest Home Care Assistance: None Needed Report the Following to Your Physician Immediately: Shortness of Breath, Nausea, Increase in Pain, Fever over 101 Degrees, Unusual Bleeding, Redness, Swelling, Warmth
--- NOTE | 2020-08-01 09:58 | Operative Report ---
Nonrecallable Operative Report DATE OF SURGERY: 08/01/20 PREOPERATIVE DIAGNOSIS: Breast cancer POSTOPERATIVE DIAGNOSIS: Same OPERATION: 1. Ultrasound-guided central venous puncture. 2. Right internal jugular vein Mediport placement. SURGEON: JAVIER PEREZ ANESTHESIA: LMAC TISSUE REMOVED OR ALTERED: None COMPLICATIONS: None apparent ESTIMATED BLOOD LOSS: Minimal PROCEDURE: Drains/implants: Mediport to right internal jugular vein. Procedure in detail: After informed consent was obtained, the patient was broug ht to the operating room and laid in the Trendelenburg position. The area of the neck and chest were prepped and draped in a normal sterile fashion. An ultrasound was used to identify the right internal jugular vein. It was compressible with normal flow. Under direct ultrasonic guidance, the right internal jugular vein was cannulated with the supplied access needle. Dark venous, nonpulsatile blood was returned in the syringe. The wire was inserted into the lumen of the vein easily. The wire was confirmed to be within the lumen of the vein using the ultrasound, as well as fluoroscopy. Picture documentation was obtained, and placed on the chart. Next, the previous right chest wall scar was excised, and a pocket was created for the Mediport hub. The catheter was then tunneled from the Mediport hub site to the needle insertion site. Next, the dilator and breakaway sheath were inserted over the wire. The wire and dilator were removed, leaving the breakaway sheath within the superior vena cava. The catheter was inserted into the sheath. The sheath was cracked and pulled away, leaving the catheter within the SVC. The catheter was pulled back to an appropriate level, and trimmed to length. The catheter was attached to the Mediport hub. The Mediport hub was then buried in the pocket, and sutured to the chest wall using 3-0 Vicryl suture. The subcutaneous tissues were then closed using 3-0 Vicryl suture in simple running fashion. The overlying skin was closed using 4-0 Vicryl Rapide suture in subcuticular fashion. The Mediport was accessed and flushed using heparinized saline. Dressings were then placed, and the procedure was concluded. All sponge, instrument, and needle counts were correct x2. Condition: Stable.
--- NOTE | 2020-08-01 10:44 | RADIOLOGY REPORT (SQ) ---
EXAM DESCRIPTION: CHEST SINGLE VIEW IMAGES COMPLETED DATE/TIME: 08/01/2020 10:29 am REASON FOR STUDY: c-line COMPARISON: 08/01/2016 EXAM PARAMETERS: NUMBER OF VIEWS: One view. TECHNIQUE: Single frontal radiographic view of the chest acquired. RADIATION DOSE: NA LIMITATIONS: None. FINDINGS: LUNGS AND PLEURA: No opacities, masses or pneumothorax. No pleural effusion. MEDIASTINUM AND HILAR STRUCTURES: No masses. Contour normal. HEART AND VASCULAR STRUCTURES: Heart normal in size. Normal vasculature. BONES: No acute findings. HARDWARE: None in the chest. OTHER: Right-sided port tip overlying SVC. IMPRESSION: Good position of port. No pneumothorax. TECHNICAL DOCUMENTATION: JOB ID: [id number] 2010 [employer]- All Rights Reserved Reading location - IP/workstation name: [email or web address]
[2020-08-01 11:41] VITALS: BP 131/71
--- NOTE | 2020-08-01 15:14 | RADIOLOGY REPORT (SQ) ---
EXAM DESCRIPTION: FLUORO/CV PLACEMENT IMAGES COMPLETED DATE/TIME: 08/01/2020 11:26 am REASON FOR STUDY: PORTACATH PLCMT RIGHT SIDE ASSITED WITH FLUORO IN OR C50.919 MALIGNANT NEOPLASM O F UNSP SITE OF UNSPECIFIED FEMAL COMPARISON: None. FLUOROSCOPY TIME: 0.5 minutes 3 images saved to PACS. TECHNIQUE: Intra-operative images acquired during surgical procedure to evaluate progress. NUMBER OF IMAGES: 3 LIMITATIONS: None. FINDINGS: Right-sided port tip overlying SVC. IMPRESSION: IMAGE(S) OBTAINED DURING PROCEDURE. COMMENT: Quality ID [id number]: Final reports for procedures using fluoroscopy that document radiation exp osure indices, or exposure time and number of fluorographic images (if radiation exposure indices are not available) Please consult full operative report of the attending physician for description of the procedure. TECHNICAL DOCUMENTATION: JOB ID: [id number] 2010 [employer]- All Rights Reserved Reading location - IP/workstation name: [email or web address]
== END 2020-08-01 11:35 | disposition home or self-care (01) ==
LOC: OROUT 07:03
PROVIDERS: ATTEND Surgery
DX: C50.912 Malignant neoplasm of unspecified site of left female breast (principal); C79.51 Secondary malignant neoplasm of bone; C78.7 Secondary malignant neoplasm of liver and intrahepatic bile duct; C79.89 Secondary malignant neoplasm of other specified sites; Z90.13 Acquired absence of bilateral breasts and nipples; Z03.818 Encounter for observation for suspected exposure to other biological agents ruled out; F17.210 Nicotine dependence, cigarettes, uncomplicated; G47.00 Insomnia, unspecified; Z79.899 Other long term (current) drug therapy; F41.9 Anxiety disorder, unspecified; F32.9 Major depressive disorder, single episode, unspecified
CPT/HCPCS: 71045; 77001; 00532; 36561; C1788; U0003; J2250; J3010; J3490; J7050; J2704; J0690; J1642; J1741; C9803; 532; 87635